=== PATIENT | female | born 1975 | race Asian ===

== ENCOUNTER 2017-09-23 12:59 | Outpatient (CLI) | payer BC | END 2017-09-23 14:00 | disposition home or self-care (01) | LOC: CT 12:59 | DX: R42 Dizziness and giddiness (principal); R51 Headache ==

== ENCOUNTER 2018-12-31 19:41 | Outpatient (CLI) | payer BC | END 2018-12-31 20:46 | disposition home or self-care (01) | LOC: RAD 19:41 | DX: M25.512 Pain in left shoulder (principal) ==

== ENCOUNTER 2019-02-01 18:30 | Emergency (ER) | payer BC ==
[~2019-02-01] VITALS: Ht 165.1 cm; Wt 68.0 kg
[2019-02-01 19:29] LABS: PLATELET COUNT 338 K/uL (152-353)
[2019-02-01 19:42] LABS: POTASSIUM 3.1 mmol/L (3.6-5.2); SODIUM 141 mmol/L (136-145)
[2019-02-01 20:40] VITALS: BP 118/86; TEMP 98
== END 2019-02-01 20:45 | disposition home or self-care (01) ==
LOC: ED 18:30
PROVIDERS: Family Medicine
DX: K21.9 Gastro-esophageal reflux disease without esophagitis (principal); K29.00 Acute gastritis without bleeding; R07.89 Other chest pain
CPT/HCPCS: 36415; 80053; 81000; 82550; 82553; 84484; 85027; 93005; 99283

== ENCOUNTER 2019-02-09 18:32 | Outpatient (CLI) | payer BC | END 2019-02-09 21:14 | disposition home or self-care (01) | LOC: RAD 18:32 | DX: S46.019D Strain of muscle(s) and tendon(s) of the rotator cuff of unspecified shoulder, subsequent encounter (principal) ==

== ENCOUNTER 2020-06-07 03:52 | Emergency (ER) | payer OTHER, BC ==
[~2020-06-07] VITALS: Ht 165.1 cm; Wt 69.9 kg
[2020-06-07 04:00] VITALS: TEMP 98.5
[2020-06-07] MEDS ORDERED: PHENTERMINE H37.5 MG PO (04:22)
[2020-06-07 05:07] LABS: PLATELET COUNT 287 K/uL (152-353)
[2020-06-07 05:19] LABS: POTASSIUM 3.4 mmol/L (3.6-5.2); SODIUM 142 mmol/L (136-145)
[2020-06-07 07:06] VITALS: BP 110/66
== END 2020-06-07 07:14 | disposition home or self-care (01) ==
LOC: ED 03:52
PROVIDERS: General Practice
DX: R55 Syncope and collapse (principal); T50.5X5A Adverse effect of appetite depressants, initial encounter; Y92.89 Other specified places as the place of occurrence of the external cause
CPT/HCPCS: 80053; 81000; 81002; 84484; 85027; 93005; 99283

== ENCOUNTER 2021-07-12 10:02 | Outpatient (CLI) | payer OTHER, BC ==
[~2021-07-12 10:02] MED LIST: PHENTERMINE H37.5 MG PO
== END 2021-07-12 20:14 | disposition home or self-care (01) ==
LOC: MAMMO 10:02
PROVIDERS: ATTEND Registered Nurse
DX: Z12.31 Encounter for screening mammogram for malignant neoplasm of breast (principal)

== ENCOUNTER 2022-03-07 09:50 | Emergency (ER) | payer OTHER, BC ==
[~2022-03-07] VITALS: Ht 165.1 cm; Wt 77.1 kg
[2022-03-07 09:50] VITALS: TEMP 98
[2022-03-07 10:45] LABS: PLATELET COUNT 315 K/uL (152-353)
[2022-03-07 11:04] LABS: PARTIAL THROMBOPLASTIN TIME 26.3 SECONDS (24.5-33.6)
[2022-03-07 11:09] LABS: POTASSIUM 3.5 mmol/L (3.6-5.2); SODIUM 141 mmol/L (136-145)
[2022-03-07 11:30] VITALS: BP 130/78
[2022-03-07] MEDS ORDERED: OMEPRAZOLE DR40 MG PO (11:31)
== END 2022-03-07 11:33 | disposition home or self-care (01) ==
LOC: ED 09:50
PROVIDERS: Emergency Medicine
DX: K21.9 Gastro-esophageal reflux disease without esophagitis (principal); R07.89 Other chest pain
CPT/HCPCS: 36415; 80053; 84484; 85027; 85379; 85610; 85730; 93005; 96374; 96375; 99284; J2405; J3490

== ENCOUNTER 2022-08-14 10:59 | Outpatient (CLI) | payer OTHER, BC ==
[~2022-08-14 10:59] MED LIST changes: +OMEPRAZOLE DR40 MG PO
== END 2022-08-14 23:24 | disposition home or self-care (01) ==
LOC: MAMMO 10:59
PROVIDERS: ATTEND Nurse Practitioner Family
DX: Z12.31 Encounter for screening mammogram for malignant neoplasm of breast (principal)

== ENCOUNTER 2022-08-26 01:58 | Emergency (ER) | payer OTHER, BC ==
[~2022-08-26] VITALS: Ht 165.1 cm; Wt 77.1 kg
[2022-08-26 02:05] VITALS: TEMP 98.3
[2022-08-26 02:44] LABS: PLATELET COUNT 342 K/uL (152-353)
[2022-08-26 02:53] LABS: POTASSIUM 3.2 mmol/L (3.6-5.2)
[2022-08-26 03:19] LABS: PARTIAL THROMBOPLASTIN TIME 20.9 SECONDS (24.5-33.6)
[2022-08-26 05:30] VITALS: BP 113/71
== END 2022-08-26 05:30 | disposition home or self-care (01) ==
LOC: ED 01:58
PROVIDERS: Emergency Medicine
DX: I95.9 Hypotension, unspecified (principal)
CPT/HCPCS: 36415; 80053; 85027; 85610; 85730; 87502; 93005; 96360; 96365; 99284